=== PATIENT | male | born 1990 | race African-American/Black ===

== ENCOUNTER 2019-05-21 17:09 | Emergency (ER) | payer MEDICAID ==
[~2019-05-21] VITALS: Ht 182.9 cm; Wt 100.0 kg
[~2019-05-21 17:09] MED LIST: NONE REPORTED
[2019-05-21 17:12] VITALS: BP 142/92
== END 2019-05-21 21:16 | disposition left against medical advice (07) ==
LOC: ER 17:09
DX: M54.9 Dorsalgia, unspecified (principal); Z53.21 Procedure and treatment not carried out due to patient leaving prior to being seen by health care provider

== ENCOUNTER 2019-05-22 16:09 | Emergency (ER) | payer MEDICAID ==
[~2019-05-22] VITALS: Ht 182.9 cm; Wt 108.0 kg
[2019-05-22 19:33] VITALS: BP 142/88
== END 2019-05-22 19:30 | disposition home or self-care (01) ==
LOC: ER 16:09
DX: M54.5 Low back pain (principal); G89.29 Other chronic pain; F17.210 Nicotine dependence, cigarettes, uncomplicated; V43.92XA Unspecified car occupant injured in collision with other type car in traffic accident, initial encounter; Y93.89 Activity, other specified; Y92.488 Other paved roadways as the place of occurrence of the external cause
CPT/HCPCS: 99283

== ENCOUNTER 2021-05-13 22:31 | Emergency (ER) | payer MEDICAID ==
[~2021-05-13] VITALS: Ht 185.4 cm; Wt 107.0 kg
[2021-05-14] MEDS ORDERED: KETOROLAC 30MG/ML VIAL IM ONE (02:00)
[2021-05-14] MEDS ORDERED: DOXY100C5 MT (03:25)
[2021-05-14] MEDS ORDERED: CEFTRIAXONE SODIUM 500 MG/VIAL IM ONE (03:30)
[2021-05-14] MEDS ORDERED: DOXYCYCLINE HYCLATE 100MG CAPSULE PO ONE (03:30)
[2021-05-14 03:47] LABS: CLARITY URINE CLEAR (CLEAR); COLOR URINE YELLOW (YELLOW); KETONES URINE NEGATIVE (NEGATIVE); LEUKOCYTE ESTERASE URINE 2+ (NEGATIVE); NITRITE URINE NEGATIVE (NEGATIVE); OCCULT BLOOD URINE NEGATIVE (NEGATIVE); PROTEIN URINE TRACE (NEGATIVE); SPECIFIC GRAVITY URINE 1.024 (1.005-1.030); UROBILINOGEN URINE 0.2 E.U./dL (0.2-1.0)
[2021-05-14 04:05] VITALS: BP 142/89
== END 2021-05-14 04:10 | disposition home or self-care (01) ==
LOC: ER 22:31
DX: N50.812 Left testicular pain (principal)
CPT/HCPCS: 76870; 81003; 87086; 93976; 96372; 99284; J0696; J1885

== ENCOUNTER 2021-07-04 14:01 | Emergency (ER) | payer MEDICAID ==
[~2021-07-04] VITALS: Ht 185.4 cm; Wt 102.0 kg
[~2021-07-04 14:01] MED LIST changes: +DOXY100C5 MT
[2021-07-04 14:13] VITALS: BP 184/119
[2021-07-04] MEDS ORDERED: LIDOCAINE HCL 1% 20ML VIAL (Pyxis) INJ INFIL ONE (15:15)
[2021-07-04] MEDS ORDERED: CEFTRIAXONE SODIUM 500 MG/VIAL IM ONE (15:15)
[2021-07-04] MEDS ORDERED: DOXY100T2 MT (16:55)
[2021-07-04] MEDS ORDERED: DOXYCYCLINE HYCLATE 100MG CAPSULE PO ONE (17:00)
[2021-07-04 18:47] LABS: CLARITY URINE CLEAR (CLEAR); COLOR URINE YELLOW (YELLOW); KETONES URINE TRACE (NEGATIVE); LEUKOCYTE ESTERASE URINE 2+ (NEGATIVE); NITRITE URINE NEGATIVE (NEGATIVE); OCCULT BLOOD URINE NEGATIVE (NEGATIVE); PROTEIN URINE TRACE (NEGATIVE); SPECIFIC GRAVITY URINE 1.022 (1.005-1.030)
== END 2021-07-04 18:23 | disposition home or self-care (01) ==
LOC: ER 14:01
DX: N43.3 Hydrocele, unspecified (principal); A64 Unspecified sexually transmitted disease; I10 Essential (primary) hypertension; Z87.891 Personal history of nicotine dependence
CPT/HCPCS: 76870; 81003; 87491; 87591; 93976; 96372; 99284; J0696; J3490

== ENCOUNTER 2021-08-16 18:44 | Emergency (ER) | payer MEDICAID ==
[~2021-08-16] VITALS: Ht 185.4 cm; Wt 106.0 kg
[~2021-08-16 18:44] MED LIST changes: +DOXY100T2 MT
[2021-08-16] MEDS ORDERED: KETOROLAC 60MG/2ML VIAL IM ONE (19:45)
[2021-08-16] MEDS ORDERED: DIAZEPAM 5 MG TABLET PO ONE (19:45)
[2021-08-16] MEDS ORDERED: METHOCARBAMOL 750MG TABLET PO SCH (19:45)
[2021-08-16] MEDS ORDERED: LIDOCAINE 5% PATCH TOP SCH (19:45)
[2021-08-16] MEDS ORDERED: LIDO1ADH23 TP (22:43)
[2021-08-16] MEDS ORDERED: METH-653 MT (22:43)
[2021-08-16] MEDS ORDERED: IBUP-2028 MT (22:43)
[2021-08-16 23:06] VITALS: BP 178/111
== END 2021-08-16 23:26 | disposition home or self-care (01) ==
LOC: ER 18:44
DX: M51.26 Other intervertebral disc displacement, lumbar region (principal); R26.2 Difficulty in walking, not elsewhere classified; I10 Essential (primary) hypertension; Z79.899 Other long term (current) drug therapy
CPT/HCPCS: 96372; 99284; J1885

== ENCOUNTER 2022-06-01 09:59 | Emergency (ER) | payer MEDICAID ==
[~2022-06-01] VITALS: Ht 182.9 cm; Wt 75.0 kg
[~2022-06-01 09:59] MED LIST changes: +IBUP-2028 MT; +LIDO1ADH23 TP; +METH-653 MT
[2022-06-01] MEDS ORDERED: IBUPROFEN 600MG TABLET PO ONE (10:15)
[2022-06-01 10:49] VITALS: BP 146/106
[2022-06-01] MEDS ORDERED: CEFTRIAXONE SODIUM 500 MG/VIAL IM ONE (12:00)
[2022-06-01 12:05] LABS: CLARITY URINE CLEAR (CLEAR); COLOR URINE DARK YELLOW (YELLOW); KETONES URINE 1+ (NEGATIVE); LEUKOCYTE ESTERASE URINE 1+ (NEGATIVE); NITRITE URINE NEGATIVE (NEGATIVE); OCCULT BLOOD URINE NEGATIVE (NEGATIVE); PH URINE 5.5 (4.5-8.0); PROTEIN URINE 1+ (NEGATIVE); SPECIFIC GRAVITY URINE 1.032 (1.005-1.030)
[2022-06-01] MEDS ORDERED: DOXY-244 MT (12:16)
[2022-06-01] MEDS ORDERED: NAPR-681 MT (12:16)
[2022-06-03 07:12] LABS: HIV SCREEN 4G Non Reactive (Non Reactive)
== END 2022-06-01 12:44 | disposition home or self-care (01) ==
LOC: ER 09:59
DX: N45.3 Epididymo-orchitis (principal); I10 Essential (primary) hypertension
CPT/HCPCS: 76870; 81003; 87389; 93976; 96372; 99284; J0696

== ENCOUNTER 2022-07-20 07:54 | Emergency (ER) | payer MEDICAID, OTHER ==
[~2022-07-20] VITALS: Ht 185.4 cm; Wt 107.0 kg
[~2022-07-20 07:54] MED LIST changes: +DOXY-244 MT; +NAPR-681 MT
[2022-07-20] MEDS ORDERED: IBUPROFEN 400MG TABLET PO ONE (08:30)
[2022-07-20 10:07] LABS: BASOPHILS % 0.5 % (0.0-2.0); HEMOGLOBIN. 15.2 g/dL (14.0-18.0); LYMPHOCYTES % 38.1 % (20.0-50.0); MEAN CORPUSCULAR HEMOGLOBIN 31.3 pg (28.0-32.0); MEAN CORPUSCULAR VOLUME 92.3 fL (80.0-94.0); MEAN PLATELET VOLUME 8.7 fl (7.4-10.4); MONOCYTES % 12.3 % (2.0-8.0); NEUTROPHILS % 46.1 % (40.0-76.0); PLATELET 242 x1000/uL (130-400); RED BLOOD CELL COUNT 4.87 mill/uL (4.7-6.1); RED CELL DISTRIBUTION WIDTH 14.3 % (11.6-14.6)
[2022-07-20 10:13] LABS: CHLORIDE 107 mEq/L (98-107)
[2022-07-20 10:24] LABS: D-DIMER 0.21 mg/L FEU (<0.50); PARTIAL THROMBOPLASTIN TIME 35.3 sec (23.4-31.0); PROTHROMBIN TIME 10.4 sec (9.6-11.0)
[2022-07-20] MEDS ORDERED: IOHEXOL-350 100 ML BOTTLE ONE (11:11)
[2022-07-20] MEDS ORDERED: IBUPROFEN 400MG TABLET PO NR (11:30)
[2022-07-20] MEDS ORDERED: IBUP-2028 MT (11:56)
[2022-07-20 12:00] VITALS: BP 153/102
== END 2022-07-20 12:41 | disposition home or self-care (01) ==
LOC: ER 07:54
DX: R07.81 Pleurodynia (principal); M54.89 Other dorsalgia; R06.02 Shortness of breath; Z86.718 Personal history of other venous thrombosis and embolism
CPT/HCPCS: 36415; 71045; 71275; 80053; 83880; 84484; 85025; 85379; 85610; 85730; 93005; 93970; 99285; Q9967

== ENCOUNTER 2023-02-26 13:04 | Emergency (ER) | payer MEDICAID ==
[~2023-02-26] VITALS: Ht 185.4 cm; Wt 96.0 kg
[2023-02-26 13:08] VITALS: O2SAT 100
[2023-02-26] MEDS ORDERED: AMOX50SU15 MT (15:55)
[2023-02-26] MEDS ORDERED: IBUP-1525 MT (15:55)
[2023-02-26] MEDS ORDERED: TOPUD MT (15:55)
[2023-02-26] MEDS ORDERED: DEX4 MT (15:55)
[2023-02-26] MEDS ORDERED: MAGNESIUM/ALUMINUM HYDROXIDE/SIMETHICONE 30ML UDC PO ONE (16:00)
[2023-02-26] MEDS ORDERED: KETOROLAC 60MG/2ML VIAL IM ONE (16:00)
[2023-02-26] MEDS ORDERED: DEXAMETHASONE 4MG TABLET PO ONE (16:00)
[2023-02-26 16:54] VITALS: BP 110/74; PULSE 76; RESP 19; TEMP 98
== END 2023-02-26 16:55 | disposition home or self-care (01) ==
LOC: ER 13:04
DX: J03.90 Acute tonsillitis, unspecified (principal); I10 Essential (primary) hypertension
CPT/HCPCS: 99283; 90471; J8540; J1885

== ENCOUNTER 2024-02-16 18:04 | Emergency (ER) | payer SELFPAY ==
[~2024-02-16] VITALS: Ht 182.9 cm; Wt 100.0 kg
[~2024-02-16 18:04] MED LIST changes: +AMOX50SU15 MT; +DEX4 MT; +IBUP-1525 MT; +TOPUD MT
[2024-02-16 18:11] VITALS: BP 176/111; PULSE 72; RESP 16; TEMP 97.6; O2SAT 100
[2024-02-16] MEDS ORDERED: lisinopril (18:11)
[2024-02-16 18:54] LABS: BASOPHILS % 0.8 % (0.0-2.0); CHLORIDE 104 mEq/L (98-107); EOSINOPHILS % 0.8 % (0.0-5.0); HEMATOCRIT. 46.8 % (42.0-52.0); LYMPHOCYTES % 37.7 % (20.0-50.0); MEAN CORPUSCULAR HEMOGLOBIN 30.5 pg (28.0-32.0); MEAN CORPUSCULAR HGB CONC 34.2 g/dL (31.0-37.0); MEAN CORPUSCULAR VOLUME 89.1 fL (80.0-94.0); MEAN PLATELET VOLUME 8.3 fl (7.4-10.4); MONOCYTES % 8.9 % (2.0-8.0); NEUTROPHILS % 51.8 % (40.0-76.0); PLATELET 188 x1000/uL (130-400); POTASSIUM 3.6 mEq/L (3.5-5.1); RED BLOOD CELL COUNT 5.25 mill/uL (4.7-6.1); RED CELL DISTRIBUTION WIDTH 13.8 % (11.6-14.6); SODIUM 136 mEq/L (136-145); WHITE BLOOD COUNT 3.4 x1000/uL (4.5-11.0)
[2024-02-16 18:55] LABS: CARBON DIOXIDE 27 mEq/L (21-32)
[2024-02-16 18:56] LABS: CALCIUM 9.4 mg/dL (8.7-10.4)
[2024-02-16 19:00] LABS: CREATININE 1.1 mg/dL (0.6-1.3); GLUCOSE 116 mg/dL (70-105); UREA NITROGEN BLOOD 10 mg/dL (9-23)
[2024-02-16 19:02] LABS: ALANINE AMINOTRANSFERASE 54 IU/L (10-49); ASPARTATE AMINOTRANSFERASE 34 IU/L (<34)
[2024-02-16 19:03] LABS: BILIRUBIN TOTAL 0.4 mg/dL (0.1-1.0); PROTEIN TOTAL 8.1 g/dL (6.0-8.3)
[2024-02-16] MEDS: LACTATED RINGERS 1,000 ML IV SCH (19:51)
[2024-02-16] MEDS: ACETAMINOPHEN 325MG TABLET PO ONE (20:01)
[2024-02-16] MEDS: METOCLOPRAMIDE HCL 10MG/2ML VIAL IV ONE (20:01)
[2024-02-16] MEDS: KETOROLAC 15MG/ML VIAL IV ONE (21:15)
== END 2024-02-16 22:33 | disposition home or self-care (01) ==
LOC: ER 18:04
DX: R10.9 Unspecified abdominal pain (principal); R19.7 Diarrhea, unspecified; R51.9 Headache, unspecified; I10 Essential (primary) hypertension; Z79.899 Other long term (current) drug therapy
CPT/HCPCS: 80053; 83690; 85025; 36415; 70450; 74176; 96361; 96374; 99285; J2765; Z7610

== ENCOUNTER 2024-09-19 12:16 | Emergency (ER) | payer MEDICAID, OTHER ==
[~2024-09-19] VITALS: Ht 185.4 cm; Wt 95.3 kg
[~2024-09-19 12:16] MED LIST changes: +lisinopril
[2024-09-19 12:17] VITALS: O2SAT 100
[2024-09-19 12:21] VITALS: BP 174/124; PULSE 100; RESP 16; TEMP 36.8; O2SAT 99
[2024-09-19] MEDS: IBUPROFEN 800MG TABLET PO ONE (13:10)
[2024-09-19] MEDS: ACETAMINOPHEN 500MG TABLET PO ONE (13:10)
[2024-09-19 13:54] LABS: HEMATOCRIT 41.5 % (42.0-52.0); MEAN CORPUSCULAR HEMOGLOBIN 30.9 pg (28.0-32.0); MEAN CORPUSCULAR HGB CONC 33.8 g/dL (31.0-37.0); MEAN CORPUSCULAR VOLUME 91.4 fL (80.0-94.0); PLATELET 244 x1000/uL (130-400); RED BLOOD CELL COUNT 4.54 mill/uL (4.7-6.1); RED CELL DISTRIBUTION WIDTH 14.5 % (11.6-14.6); WHITE BLOOD COUNT 4.7 x1000/uL (4.5-11.0)
[2024-09-19 14:05] LABS: CHLORIDE 110 mEq/L (98-107); POTASSIUM 3.8 mEq/L (3.5-5.1); SODIUM 141 mEq/L (136-145)
[2024-09-19 14:06] LABS: CARBON DIOXIDE 23 mEq/L (21-32)
[2024-09-19 14:07] LABS: CALCIUM 9.1 mg/dL (8.7-10.4)
[2024-09-19 14:11] LABS: CREATININE 0.9 mg/dL (0.6-1.3); GLUCOSE 89 mg/dL (70-105); UREA NITROGEN BLOOD 11 mg/dL (9-23)
[2024-09-19] MEDS ORDERED: IOHEXOL-300 100 ML BOTTLE ONE (22:53)
== END 2024-09-19 17:36 | disposition home or self-care (01) ==
LOC: ER 12:16
DX: M62.89 Other specified disorders of muscle (principal); I10 Essential (primary) hypertension; V49.9XXA Car occupant (driver) (passenger) injured in unspecified traffic accident, initial encounter; Y93.89 Activity, other specified; Y92.89 Other specified places as the place of occurrence of the external cause; Y99.8 Other external cause status
CPT/HCPCS: 99285; 74177; 80048; 85027; 36415; Q9967